=== PATIENT | male | born 1945 | race Native Hawaiian/Other Pacific Islander ===

== ENCOUNTER 2017-06-21 17:31 | Outpatient (CLI) | payer OTHER ==
[2017-06-21 18:33] LABS: PLATELET COUNT 184 K/uL (142-355)
[2017-06-21 19:37] LABS: POTASSIUM 4.1 mmol/L (3.6-5.2)
== END 2017-06-21 18:35 | disposition home or self-care (01) ==
LOC: LAB 17:31
PROVIDERS: Nurse Practitioner Family
DX: E11.65 Type 2 diabetes mellitus with hyperglycemia (principal); Z79.4 Long term (current) use of insulin; E78.2 Mixed hyperlipidemia; I10 Essential (primary) hypertension; R53.81 Other malaise; R53.83 Other fatigue
CPT/HCPCS: 80053; 80061; 83036; 84154; 84436; 84443; 85027

== ENCOUNTER 2017-12-25 13:22 | Outpatient (CLI) | payer OTHER ==
[2017-12-25 13:52] LABS: PLATELET COUNT 146 K/uL (142-355)
[2017-12-25 14:27] LABS: POTASSIUM 4.4 mmol/L (3.6-5.2)
== END 2017-12-25 23:42 | disposition home or self-care (01) ==
LOC: LAB 13:22
PROVIDERS: Nurse Practitioner Family
DX: E78.2 Mixed hyperlipidemia (principal); R53.81 Other malaise; R53.83 Other fatigue; I10 Essential (primary) hypertension; Z79.4 Long term (current) use of insulin
CPT/HCPCS: 80053; 80061; 82306; 83036; 84154; 84436; 84443; 85027